=== PATIENT | female | born 1965 | race Caucasian/White ===

== ENCOUNTER → 2017-06-23 | Outpatient (CLI) | payer OTHER ==
--- NOTE | 2017-06-28 16:14 | RADIOLOGY REPORT PS360 ---
DIG MAMM-SCREEN VICENTE W/CAD CAD Screening COMPARISON: Digital mammograms 06/17/2016 and 06/14/2015 INDICATION: There is a history of breast cancer patient maternal grandmother. There is been previous biopsy left breast for benign disease. TECHNIQUE: Standard CC and MLO images were obtained. R2 CAD reviewed. FINDINGS: Moderate fiber glandular densities are seen in central portions of both breast and the findings are bilateral and symmetrical. There is no suspicious lesion in either breast and no suspicious microcalcifications. There are few scattered benign-appearing calcifications in each breast. IMPRESSION: Stable exam with no suspicious lesion seen recommend yearly follow-up BI-RADS CATEGORY: 2_Benign RECOMMENDED FOLLOWUP: 12M 12 MONTH FOLLOW-UP (A letter has been sent to the patient regarding results of the study.)
== END ==
LOC: RAD 16:49
DX: Z12.31 Encounter for screening mammogram for malignant neoplasm of breast (principal)
CPT/HCPCS: G0202